=== PATIENT | female | born 1980 | race Caucasian/White ===

== ENCOUNTER 2016-07-05 01:52 | Emergency (ER) | payer MEDICAID ==
[~2016-07-05] VITALS: Ht 152.4 cm; Wt 64.5 kg
[~2016-07-05 01:52] MED LIST: PNV1TABL43 PO
[2016-07-05 02:00] VITALS: Ht 152.4 cm; Wt 64.5 kg
--- NOTE | 2016-07-05 03:17 | ERD ---
ER Documentation Chief Complaint Date/Time DATE: 07/05/16 TIME: 03:12 Chief Complaint near syncope while in ED2,son is the ED2 pt HPI Patient is a 35-year-old female with past medical history of syncopal episodes during previous pregnancies who presents with near syncopal episode here in the emergency department. Near syncopal episode was witnessed by science technician. Patient was standing near [facility], holding her son, while science technician was placing a arm splint on the patient's son. science technician stated that the patient reported starting to feel faint and looked as if she was going to pass out. science technician immediately had the patient lie down on the gurney. Patient did not have a loss of consciousness. Patient did not hit her head. Upon speaking with the patient, she states that she had 3 syncopal episodes during her previous pregnancies. Patient states that she last ate at 12 PM, lunch. Patient states that she has not eaten because she had just got home from work when her son fell off the couch and injured his elbow. Patient came immediately to the emergency department given her son's injury. She denies any headache, chest pain, shortness of breath, abdominal pain, nausea, vomiting, fever or chills. ROS All systems reviewed and are negative except as per history of present illness. Medications Home Meds Reported Medications Vit/Fe Fumarate/Fa* ( Vitamin Tablet*) 1 Tab Tablet, 1 TAB PO 10/18/13 Allergies Allergies: Coded Allergies: No Known Allergy (Unverified , 10/18/13) PMhx/Soc History of Surgery: No Anesthesia Reaction: No Hx Neurological Disorder: No Hx Respiratory Disorders: No Hx Cardiac Disorders: No Hx Psychiatric Problems: No Hx Miscellaneous Medical Probl: Yes (syncopal episodes) Hx Alcohol Use: No Hx Substance Use: No Hx Tobacco Use: No Smoking Status: Never smoker Physical Exam Vitals Vital Signs Date Time Temp Pulse Resp B/P Pulse Ox O2 Delivery O2 Flow Rate FiO2 07/05/16 02:00 98.5 75 16 134/83 99 Physical Exam GENERAL: Well-developed, well-nourished female. HEAD: Normocephalic, atraumatic. EYES: Pupils are equally reactive bilaterally. EOMs grossly intact. No conjunctival erythema. ENT: Moist mucous membranes. No uvula deviation. No kissing tonsils. NECK: Supple. No lymphadenopathy or thyromegaly. No meningismus. LUNG: Clear to auscultation bilaterally. No rhonchi, wheezing, rales or coarse breath sounds. HEART: Regular rate and rhythm. No murmurs, rubs or gallops. ABDOMEN: No scars, ecchymosis or rashes noted. Soft, nontender, and nondistended. Positive bowel sounds in all four quadrants. No rebound tenderness , no guarding. (-) McBurneys point tenderness. No CVA tenderness. BACK: No midline tenderness. EXTREMITIES: Equal pulses bilaterally. No peripheral clubbing, cyanosis or edema. No unilateral leg swelling. NEUROLOGIC: Alert and oriented x3, cooperative. Mood and affect appropriate to situation. Cranial nerves II through XII are grossly intact. Normal speech. Motor exam: 5/5 strength in upper and lower extremities. Sensory exam: Sensation intact to light touch on all four extremities. Cerebellar function exam: No dysmetria on [id number]-lj-[id number]. Steady gait. No pronator drift. (-) Brudzinski sign. (-) Kernig sign. SKIN: Normal color. Warm and dry. No rashes or lesions. Results 24 hrs Laboratory Tests Test 07/05/16 02:49 Bedside Glucose 116mg/dL Procedures/MDM ED COURSE: The patient was stable throughout ED course. I kept the patient and/or family informed of laboratory and diagnostic imaging results throughout the ED course. EKG: Read by Dr. Ribera, attending physician. EKG shows normal sinus rhythm at a rate of 68 bpm. No arrhythmias, acute ST elevations or T wave changes were noted. MEDICAL DECISION MAKING: Patient is a 35-year-old female who had a near-syncopal episode here in the emergency department. Near-syncopal episode was witnessed by science technician. Patient was immediately placed on gurney. Patient did not lose consciousness or have any head injury. Patient reported that she last ate over 12 hours ago. Vital signs were reviewed. Patient was afebrile. Patient was not hypoxic. Upon initial examination, patient was noted to have a glucose level of 100. Patient was given some juice and food to eat here in the emergency department. Upon recheck, glucose level was reported to be 116. Patient reported feeling much better after eating. Cardiac exam was normal. Lung exam was normal. Abdominal exam is normal. Full neuro exam was normal. EKG was within normal limits. At this time, the patients presentation is most consistent with near-syncopal episode. Low suspicion for ACS, arrhythmia, pericarditis, sepsis, CVA, TIA, subarachnoid hemorrhage or hypotension. DISCHARGE: At this time, patient is stable for discharge and outpatient management. Patient 's sister was present to take patient and patient's son home. Patient sister advised to monitor patient over the next 24 hours. I have instructed the patient to follow-up with his/her primary care physician in 1-2 days. I have discussed with the patient that she needs to see a materials inspector for further workup and imaging studies given recurrent hx of syncopal episodes. Patient advised to eat frequent meals and avoid skipping meals. I have instructed the patient to promptly return to the ER for any new or worsening symptoms including increased pain, fever, nausea, vomiting, weakness or LOC. The patient and/or family expressed understanding of and agreement with this plan. All questions were answered. Home care instructions were provided. Departure Diagnosis: Primary Impression: Near syncope Condition: Stable Patient Instructions: Near Syncope, Unknown Referrals: [facility] YOU HAVE RECEIVED A MEDICAL SCREENING EXAM AND THE RESULTS INDICATE THAT YOU DO NOT HAVE A CONDITION THAT REQUIRES URGENT TREATMENT IN THE EMERGENCY DEPARTMENT. FURTHER EVALUATION AND TREATMENT OF YOUR CONDITION CAN WAIT UNTIL YOU ARE SEEN IN YOUR DOCTORS OFFICE WITHIN THE NEXT 1-2 DAYS. IT IS YOUR RESPONSIBILITY TO MAKE AN APPOINTMENT FOR FOLOW-UP CARE. IF YOU HAVE A PRIMARY DOCTOR --you should call your primary doctor and schedule an appointment IF YOU DO NOT HAVE A PRIMARY DOCTOR YOU CAN CALL OUR PHYSICIAN REFERRAL HOTLINE AT IF YOU CAN NOT AFFORD TO SEE A PHYSICIAN YOU CAN CHOSE FROM THE FOLLOWING [facility] [address] [facility] [address] [facility] [facility] [address] [facility] [address] [facility] [address] [facility] [facility]. [address] [place] YOU HAVE RECEIVED A MEDICAL SCREENING EXAM AND THE RESULTS INDICATE THAT YOU DO NOT HAVE A CONDITION THAT REQUIRES URGENT TREATMENT IN THE EMERGENCY DEPARTMENT. FURTHER EVALUATION AND TREATMENT OF YOUR CONDITION CAN WAIT UNTIL YOU ARE SEEN IN YOUR DOCTORS OFFICE WITHIN THE NEXT 1-2 DAYS. IT IS YOUR RESPONSIBILITY TO MAKE AN APPOINTMENT FOR FOLOW-UP CARE. IF YOU HAVE A PRIMARY DOCTOR --you should call your primary doctor and schedule and appointment IF YOU DO NOT HAVE A PRIMARY DOCTOR YOU CAN CALL OUR PHYSICIAN REFERRAL HOTLINE AT . IF YOU CAN NOT AFFORD TO SEE A PHYSICIAN YOU CAN CHOSE FROM THE FOLLOWING [facility] INSTITUTIONS: [facility] [address] [place] [address] [facility] [address] [place] [address] [facility] [address] [place] [address] Additional Instructions: Llame al doctor MAANA y kaden sotero DEYANIRA PARA DENTRO DE 1-2 RM.Dgale a la secretaria que nosotros le instruimos hacer esta deyanira.Avise o llame si cervantes condicin se empeora antes de la deyanira. Regresa aqui si peor o no mejor. JC GUY PA-C Jul 05, 2016 03:17
== END 2016-07-05 03:15 | disposition home or self-care (01) ==
LOC: FTE 01:52
DX: R55 Syncope and collapse (principal)
CPT/HCPCS: 82962; 93005; Z7502; Z7610